=== PATIENT | male | born 1955 | race African-American/Black ===

== ENCOUNTER 2021-12-24 11:24 | Emergency (ER) | payer MEDICARE, MEDICAID, SELFPAY ==
[2021-12-24] VITALS (13 sets, daily range): BP systolic 171–195; BP diastolic 90–116; PULSE 59–74; RESP 17–18; TEMP 36.8; O2SAT 100
--- NOTE | ~2021-12-24 | XR_ITS ---
EXAMINATION: XR chest 1V portable 12/24/2021 15:36 INDICATION: Hypertension. Headache. PROCEDURE: AP portable chest COMPARISON: No prior studies for comparison. FINDINGS: The lungs are clear. The cardiomediastinal silhouette is within normal limits. There are no pleural effusions. There is no pneumothorax suspected. IMPRESSION: 1: NO ACUTE CARDIOPULMONARY DISEASE. Reviewed, dictated and finalized at location A. ENSATION/BENEFITS SPECIALIST
--- NOTE | ~2021-12-24 | CT_ITS ---
EXAMINATION: CT brain wo con DATE: 12/24/2021 15:25 INDICATION: Headache. Hypertension. TECHNIQUE: Computed tomography (CT) of the head was performed without intravenous contrast. The mA wa s adjusted according to patient size. Iterative reconstruction technique was employed. The dose-lengt h product was 605.33 mGy-cm. 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 There is no intracranial hemorrhage, acute infarction, or abnormal intracranial mass lesion. The ventricles are normal in size. There is mild m ucosal thickening in the paranasal sinuses. The mastoid air cells are normal. There is cerumen in lef t external auditory canal. IMPRESSION: 1. 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 Reviewed, dictated and finalized at location A. ITY TECHNICIAN [employer]ERGL[employer]
--- NOTE | 2021-12-24 15:12 | ECG_ITS ---
Measurements Intervals [place] Rate: 57 P: 51 KS: 146 QRS: 36 QRSD: 77 T: 33 QT: 443 QTc: 432 Interpretive Statements SINUS BRADYCARDIA VOLTAGE CRITERIA FOR LVH BASELINE ARTIFACT- I, II, III, AVR, AVL, AVF BORDERLINE ECG NO PREVIOUS ECG AVAILABLE FOR COMPARISON Electronically Signed On 12-24-2021 15:52:16 LAST CODE STRIPER by Reymundo Greman D.O.
--- NOTE | 2021-12-24 15:16 | ED.GENADULT ---
HPI - General Adult General Chief complaint: Headache Stated complaint: headache Time Seen by Provider: 12/24/21 15:07 Source: patient and family Mode of arrival: ambulatory Limitations: no limitations History of Present Illness HPI narrative: 66 years old -Y[place]i male presents with headache mainly on the right side of the head and on the top started 6 to 7 days ago. Patient ran out of metoprolol 12.5 mg once a day for the last 2 weeks. He denies any fever, chills, nausea, vomiting, chest pain, shortness of breath, back pain or urinary symptoms. Patient smokes, drinks and uses marijuana daily Related Data Allergies Allergy/AdvReac Type Severity Reaction Status Date / Time No Known Allergies Allergy Verified 12/24/21 15:10 Review of Systems Review of Systems: All systems reviewed & are unremarkable except as noted in HPI and below Exam Narrative: General appearance: Well-developed, well-nourished Skin: Normal color Head: Normocephalic, nontraumatic Eyes: Clear conjunctiva ENT: Oropharynx normal, ears normal, nose normal Neck: Supple, nontender Chest and respiratory: Airway patent, no respiratory distress, no accessory muscle use Heart: Regular rate/rhythm Abdomen: Soft, nontender, no organomegaly, quiet bowel sounds Vascular: Normal peripheral pulses, normal capillary refill. Musculoskeletal: Normal range of motion, nontender back Neurologic: Alert and oriented ?3, CENTER HUMAN RESOURCES MANAGER is normal as tested, no gross motor deficit Course Vital Signs Vital signs: Vital Signs Temperature 36.8 C 12/24/21 11:28 Pulse Rate 66 12/24/21 11:28 Respiratory Rate 18 12/24/21 11:28 Blood Pressure 173/115 H 12/24/21 11:28 Pulse Oximetry 100 12/24/21 11:28 Oxygen Delivery Room Air 12/24/21 11:28 Temperature 36.8 C 12/24/21 11:28 Pulse Rate 74 12/24/21 16:42 Respiratory Rate 17 12/24/21 15:08 Blood Pressure 181/91 H 12/24/21 16:42 Pulse Oximetry 100 12/24/21 15:08 Oxygen Delivery Room Air 12/24/21 11:28 Medical Decision Making Vital Signs Vital Signs: Vital Signs Temperature 36.8 C 12/24/21 11:28 Pulse Rate 66 12/24/21 11:28 Respiratory Rate 18 12/24/21 11:28 Blood Pressure 173/115 H 12/24/21 11:28 Pulse Oximetry 100 12/24/21 11:28 Oxygen Delivery Room Air 12/24/21 11:28 Temperature 36.8 C 12/24/21 11:28 Pulse Rate 74 12/24/21 16:42 Respiratory Rate 17 12/24/21 15:08 Blood Pressure 181/91 H 12/24/21 16:42 Pulse Oximetry 100 12/24/21 15:08 Oxygen Delivery Room Air 12/24/21 11:28 Lab Data Result diagrams: 12/24/21 15:18 12/24/21 15:18 Labs: Lab Results 12/24/21 12/24/21 Range/Units 15:18 15:18 WBC 9.2 (4.5-10.0) K/mm3 RBC 5.11 (4.6-6.20) M/mm3 Hgb 16.5 (14.0-18.0) g/dL Hct 49.8 (42.0-52.0) % MCV 97.5 (80-100) fl MCH 32.3 (26-34) pg MCHC 33.1 (32-36) g/dl RDW 12.8 (11.5-14.5) % Plt Count 240 (150-375) k/mm3 MPV 9.0 (7.4-10.4) fl Immature Gran % (Auto) 0.1 (0-0.5) % Neut % (Auto) 21.1 L (45.5-73.1) % Lymph % (Auto) 70.7 H (18.3-44.2) % [place] % (Auto) 6.1 (2.6-8.5) % Eos % (Auto) 1.3 (0-4.4) % Baso % (Auto) 0.7 (0.2-1.2) % Lymph # (Auto) 6.50 H (0.9-3.2) K/mm3 [place] # (Auto) 0.6 (0.1-0.6) K/mm3 Eos # (Auto) 0.1 (0-0.3) K/mm3 Baso # (Auto) 0.1 (0.0-0.1) K/mm3 Abs Immat Gran (auto) 0.01 (0.00-0.031) K/mm3 Absolute Neuts (auto) 2.0 (1.3-6.7) K/mm3 Absolute Nucleated RBC 0.0 (0.0-0.012) K/mm3 Nucleated RBC % 0.0 (0.0-0.2) % Sodium 138 (137-145) mmol/L Potassium 3.5 (3.4-5.0) mmol/L Chloride 103 (98-107) mmol/L Carbon
[2021-12-24 15:28] LABS: Basophils Absolute Auto 0.1 K/mm3 (0.0-0.1); Basophils Percent Auto 0.7 % (0.2-1.2); Eosinophils Absolute Auto 0.1 K/mm3 (0-0.3); Eosinophils Percent Auto 1.3 % (0-4.4); Hematocrit 49.8 % (42.0-52.0); Hemoglobin 16.5 g/dL (14.0-18.0); Immature Granulocyte Absolute 0.01 K/mm3 (0.00-0.031); Immature Granulocyte Percent A 0.1 % (0-0.5); Lymphocytes Percent Auto 70.7 % (18.3-44.2); Mean Corpuscular HGB Conc 33.1 g/dl (32-36); Mean Corpuscular Hemoglobin 32.3 pg (26-34); Mean Corpuscular Volume 97.5 fl (80-100); Monocytes Absolute Auto 0.6 K/mm3 (0.1-0.6); Monocytes Percent Auto 6.1 % (2.6-8.5); Neutrophils Percent Auto 21.1 % (45.5-73.1); Platelet Count Result 240 k/mm3 (150-375); Red Blood Count 5.11 M/mm3 (4.6-6.20); Red Cell Distribution Width 12.8 % (11.5-14.5); White Blood Count 9.2 K/mm3 (4.5-10.0)
[2021-12-24] MEDS: METOPROLOL TARTRATE INJ 5 MG/5 ML VIAL IV PUSH ×3 (15:35→15:46)
[2021-12-24 15:42] LABS: Alanine Aminotransferase 18 U/L (6-50); Albumin Level 4.1 g/dL (3.5-5.1); Alkaline Phosphatase 52 U/L (38-126); Anion Gap 7 mmol/L (8-16); Aspartate Amino Transferase 27 U/L (17-59); Bilirubin,Total 0.9 mg/dL (0.2-1.3); Blood Urea Nitrogen 9 mg/dL (9-20); Calcium 8.6 mg/dL (8.4-10.2); Carbon Dioxide 28 mmol/L (22-30); Chloride 103 mmol/L (98-107); Estimated CRCL calculation 53 ml/min; Estimated Glomerular Filt Rate > 60; Glucose 88 mg/dL (65-110); Potassium 3.5 mmol/L (3.4-5.0); Sodium 138 mmol/L (137-145)
[2021-12-24 15:54] LABS: Troponin I < 0.012 ng/mL (0.000-0.034)
[2021-12-24] MEDS: hydrALAZINE HCL 20 MG/ML VIAL IV PUSH (16:09)
[2021-12-24] MEDS: LORazepam INJ (*CRX) 2 MG/ML VIAL 1 MG IV PUSH (16:10)
[2021-12-24] MEDS: METOPROLOL TARTRATE 50 MG TAB 25 MG PO (17:00)
== END 2021-12-24 17:10 | disposition home or self-care (01) ==
PROVIDERS: Emergency Provider Emergency Medicine
DX: R51.9 Headache, unspecified (principal); I16.0 Hypertensive urgency
CPT/HCPCS: 36415; 70450; 71045; 80053; 84484; 85025; 93005; 96374; 96375; 96376; 99284; A9270; J0360; J2060

== ENCOUNTER 2023-09-13 15:23 | Outpatient (CLI) | payer MEDICARE, SELFPAY ==
[2023-09-13 15:47] LABS: Hematocrit 39.6 % (42.0-52.0); Hemoglobin 13.2 g/dL (14.0-18.0); Mean Corpuscular HGB Conc 33.3 g/dl (32-36); Mean Corpuscular Hemoglobin 31.8 pg (26-34); Mean Corpuscular Volume 95.4 fl (80-100); Mean Platelet Volume 8.7 fl (7.4-10.4); Platelet Count Result 292 k/mm3 (150-375); Red Blood Count 4.15 M/mm3 (4.6-6.20); Red Cell Distribution Width 12.7 % (11.5-14.5); White Blood Count 8.9 K/mm3 (4.5-10.0)
[2023-09-13 16:01] LABS: Band Neutrophils Percent 2 % (0-6); Lymphocytes Absolute Manual 5.69 K/mm3 (1.1-4.5); Monocytes Absolute Manual 0.44 K/mm3 (0.1-0.90); Monocytes Percent Manual 5 % (3-9); Neutrophils Absolute Manual 2.75 K/mm3 (1.3-6.7); Neutrophils Percent Manual 29 % (46-73); Platelet Estimate Adequate (Adequate); Total Cells Counted 100
[2023-09-13 16:02] LABS: Hypochromasia 1+; Schistocytes None Seen
[2023-09-13 16:36] LABS: Iron 123 ug/dL (49-181)
[2023-09-13 16:44] LABS: Alanine Aminotransferase 43 U/L (6-50); Albumin Level 4.9 g/dL (3.5-5.1); Alkaline Phosphatase 57 U/L (38-126); Anion Gap 9 mmol/L (4-12); Aspartate Amino Transferase 49 U/L (17-59); Bilirubin,Total 0.7 mg/dL (0.2-1.3); Blood Urea Nitrogen 15 mg/dL (9-20); CRP < 0.5 mg/dL (<1.0); Calcium 9.4 mg/dL (8.4-10.2); Carbon Dioxide 33 mmol/L (22-30); Chloride 97 mmol/L (98-107); Estimated Glomerular Filt Rate > 60; Glucose 91 mg/dL (65-110); Potassium 3.5 mmol/L (3.4-5.0); Sodium 139 mmol/L (137-145)
[2023-09-13 16:45] LABS: Percent Iron Saturation 44 % (20-50)
[2023-09-13 16:49] LABS: Erythrocyte Sedimentation Rate 17 mm/hr (0-20)
== END 2023-09-13 15:24 | disposition home or self-care (01) ==
LOC: ANHLAB 15:28
PROVIDERS: Nurse Practitioner Family; Visit Provider Internal Medicine Hematology & Oncology
DX: D72.820 Lymphocytosis (symptomatic) (principal); D50.9 Iron deficiency anemia, unspecified
CPT/HCPCS: 36415; 80053; 82607; 82728; 83540; 83550; 85025; 85652; 86140; 88184

== ENCOUNTER 2023-09-15 15:15 | Outpatient (CLI) | payer MEDICARE, SELFPAY ==
--- NOTE | ~2023-09-15 | CT_ITS ---
CT Scan of the Chest without Contrast: Clinical Indication: Lung cancer screening, nicotine dependence Technique: Contiguous sections were acquired throughout the chest without intravenous contrast. Dose reduction technique was used on this scan by utilizing automated exposure control and iterative recon struction technique. The dose-length product (DLP) was 66.70 mGy-cm. Findings: There is no evidence of any significant mediastinal, hilar or axillary lymphadenopathy. Coronary emily ry calcification are present. There is mild diffuse esophageal dilatation. There is no evidence of pleural or pericardial effusion. 9 mm right lower lobe pulmonary nodule present (coronal image 77). There is moderate emphysema in the upper lobes. Images through the upper abdomen reveal no abnormalities. Impression: Lung RADS 4A: Suspicious. 3 month follow-up CT advised. Moderate upper lobe emphysema. Reviewed, dictated and finalized at [facility]. Impression: Lung RADS 4A: Suspicious. 3 month follow-up CT advised. Moderate upper lobe emphysema.
== END 2023-09-15 15:16 | disposition home or self-care (01) ==
LOC: ANHIMG 16:07
PROVIDERS: PCP Emergency Medicine; Visit Provider Nurse Practitioner Family
DX: Z12.2 Encounter for screening for malignant neoplasm of respiratory organs (principal); J43.9 Emphysema, unspecified; Z87.891 Personal history of nicotine dependence
CPT/HCPCS: 71271

== ENCOUNTER 2023-11-08 08:50 | Outpatient (CLI) | payer MEDICARE, SELFPAY ==
--- NOTE | ~2023-11-08 | CT_ITS ---
Clinical Indication: Lung nodule CT Scan of the Chest with Contrast: Technique: Contiguous sections were acquired throughout the chest after intravenous administration of 75 cc of Omnipaque 350. Dose reduction technique was used on this scan by utilizing automated exposu re control and iterative reconstruction technique. The dose-length product (DLP) was 146.83 mGy-cm. COMPARISON: 09/15/2023 Findings: There is no evidence of any significant mediastinal, hilar or axillary lymphadenopathy. There is no f illing defect in the pulmonary arterial tree to suggest pulmonary embolus. There is no evidence of ao rtic dissection or aneurysm. Coronary artery calcifications are present. There is no evidence of pleural or pericardial effusion. Stable 8 mm right basilar pulmonary nodule, with associated adjacent scarring. There is moderate emph ysema. Images through the upper abdomen reveal no abnormalities. Impression: Stable 8 mm right basilar pulmonary nodule with associated adjacent scarring. Moderate emphysema. Reviewed, dictated and finalized at [facility]. Impression: Stable 8 mm right basilar pulmonary nodule with associated adjacent scarring. Moderate emphysema.
[2023-11-08 09:23] LABS: Estimated Glomerular Filt Rate 57
== END 2023-11-08 08:51 | disposition home or self-care (01) ==
PROVIDERS: PCP Emergency Medicine; Visit Provider Internal Medicine Hematology & Oncology
DX: R91.1 Solitary pulmonary nodule (principal); J43.9 Emphysema, unspecified
CPT/HCPCS: 71260; Q9967

== ENCOUNTER 2023-12-06 09:21 | Outpatient (CLI) | payer MEDICARE, SELFPAY ==
[2023-12-06 09:37] LABS: Basophils Absolute Auto 0.1 K/mm3 (0.0-0.1); Basophils Percent Auto 0.8 % (0.2-1.2); Eosinophils Absolute Auto 0.2 K/mm3 (0-0.3); Hematocrit 38.7 % (42.0-52.0); Hemoglobin 12.7 g/dL (14.0-18.0); Immature Granulocyte Absolute 0.01 K/mm3 (0.00-0.031); Immature Granulocyte Percent A 0.1 % (0-0.5); Lymphocytes Absolute Auto 5.55 K/mm3 (0.9-3.2); Lymphocytes Percent Auto 64.2 % (18.3-44.2); Mean Corpuscular HGB Conc 32.8 g/dl (32-36); Mean Corpuscular Hemoglobin 31.4 pg (26-34); Mean Corpuscular Volume 95.6 fl (80-100); Mean Platelet Volume 8.8 fl (7.4-10.4); Monocytes Absolute Auto 0.6 K/mm3 (0.1-0.6); Monocytes Percent Auto 6.5 % (2.6-8.5); Neutrophils Absolute Auto 2.3 K/mm3 (1.3-6.7); Neutrophils Percent Auto 26.4 % (45.5-73.1); Platelet Count Result 287 k/mm3 (150-375); Red Blood Count 4.05 M/mm3 (4.6-6.20); Red Cell Distribution Width 12.5 % (11.5-14.5); White Blood Count 8.7 K/mm3 (4.5-10.0)
[2023-12-06 09:42] LABS: Blood Urea Nitrogen 15 mg/dL (8-26); Carbon Dioxide 28 mmol/L (22-30); Chloride 100 mmol/L (98-109); Estimated Glomerular Filt Rate > 60; Glucose 85 mg/dL (70-105); Ionized Calcium (POC) 1.11 mmol/L (1.11-1.31); Potassium 3.5 mmol/L (3.5-4.9); Sodium 139 mmol/L (138-146)
[2023-12-06 11:40] LABS: Alanine Aminotransferase 43 U/L (6-50); Albumin Level 4.4 g/dL (3.5-5.1); Alkaline Phosphatase 59 U/L (38-126); Anion Gap 7 mmol/L (4-12); Aspartate Amino Transferase 34 U/L (17-59); Bilirubin,Total 0.6 mg/dL (0.2-1.3); Blood Urea Nitrogen 16 mg/dL (9-20); Calcium 8.9 mg/dL (8.4-10.2); Carbon Dioxide 29 mmol/L (22-30); Chloride 101 mmol/L (98-107); Estimated Glomerular Filt Rate > 60; Glucose 87 mg/dL (65-110); Potassium 3.6 mmol/L (3.4-5.0); Sodium 137 mmol/L (137-145)
== END 2023-12-06 09:22 | disposition home or self-care (01) ==
PROVIDERS: PCP Emergency Medicine; Visit Provider Internal Medicine Hematology & Oncology
DX: D72.820 Lymphocytosis (symptomatic) (principal)
CPT/HCPCS: 36415; 80047; 80053; 85025

== ENCOUNTER 2024-05-21 09:45 | Outpatient (CLI) | payer MEDICARE, SELFPAY ==
--- NOTE | ~2024-05-21 | CT_ITS ---
Clinical Indication: Lung nodule CT Scan of the Chest with Contrast: Technique: Contiguous sections were acquired throughout the chest after intravenous administration of 75 cc of Omnipaque 350. Dose reduction technique was used on this scan by utilizing automated exposu re control and iterative reconstruction technique. The dose-length product (DLP) was 140.40 mGy-cm. COMPARISON: 11/08/2023 Findings: There is no evidence of any significant mediastinal, hilar or axillary lymphadenopathy. There is no f illing defect in the pulmonary arterial tree to suggest pulmonary embolus. There is no evidence of ao rtic dissection or aneurysm. Diffuse esophageal dilatation is similar to prior exam. There is no evidence of pleural or pericardial effusion. Stable focal right basilar scarring. Mild to moderate emphysema present. Images through the upper abdomen reveal no abnormalities. Impression: Stable focal right basilar scarring. Mild to moderate emphysema. Stable diffuse esophageal dilatation. Questionable wall thickening of the GE junction region. Conside r esophagram or endoscopy as indicated. Reviewed, dictated and finalized at location . Impression: Stable focal right basilar scarring. Mild to moderate emphysema. Stable diffuse esophageal dilatation. Questionable wall thickening of the GE ju nction region. Consider esophagram or endoscopy as indicated.
[2024-05-21 10:11] LABS: Estimated Glomerular Filt Rate 51
--- OUTSIDE RECORDS SUMMARY | 2024-05-21 10:41 | XMS_ITS | Clinical Summary ---
Author Organization [facility] [employer] Address [address] [place] [address] Care Team Providers Care C 40A Crew Chief Name Role Phone Blas Gorman MD Primary Care Provider [phone] Source Comments [facility] [facility],non-owned Affiliates and Associated Physician Practices is amultiple site organization consisting of ambulatory clinics and hospital sitesin [place], [place] and [place]. This disclosure is being madepursuant to the Care Everywhere program and may not contain all information available regarding this patient. Last updated [employer] [facility] Allergies No known active allergies Medications * Be aware that medications may not be up to date on this document. Alwaysverify current medications with the patient. atorvastatin (Lipitor) 20 MG tablet Take 1 (one) tablet by mouth once daily 01/01/2022 Active losartan-hydroCH LOROthiazide (Hyzaar) 100-12.5 MG tablet Take 1 (one) tablet by mouth once daily 12/25/2021 Active metoprolol tartrate IR (Lopressor) 50 MG tablet Take 1 (one) tablet by mouth 12/24/2021 Active amoxicillin (Amoxil) 875 MG tablet TAKE 1 TABLET BY MOUTH TWICE DAILY UNTIL GONE 11/08/2022 Active Social History Tobacco Use Types Packs/Day Years Used Date Smoking Tobacco: Every Day Cigarettes 0.5 15 Smokeless Tobacco: Never Tobacco Cessation:Ready to Q uit: Not Asked; Counseling Given: Not Answered Alcohol Use Standard Drinks/Week Comments Yes 0 (1 standard drink = 0.6 oz pur e alcohol) Sex and Gender Information Value Date Recorded Sex Assigned at Not on file Legal Sex 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 Gender Identity Not on file Sexual Orientation Not on file Last Filed Vital Signs Vital Sign Reading Time Taken Comments Blood Pressure 133/86 01/22/2022 9:12 AM SERGEANT AT ARMS Pulse 83 01/22/2022 9:12 AM SERGEANT AT ARMS Temperature 36.8 C (98.3 F) 01/22/2022 9:12 AM SERGEANT AT ARMS Respiratory Rate - - Oxygen Saturation 98% 01/22/2022 9:12 AM SERGEANT AT ARMS Inhaled Oxygen Concentration - - Weight 79.2 kg (174 lb 8 oz) 01/22/2022 9:12 AM SERGEANT AT ARMS Height 182.9 cm (6') 01/22/2022 9:12 AM SERGEANT AT ARMS Body Mass Index 23.67 01/22/2022 9:12 AM SERGEANT AT ARMS Plan of Treatment Health Maintenance Due Date Last Done Comments COLOGUARD (AGES 45-75) - COL ON CA SCREENING 1956 COLON MONITORING 1956 COLONOSCOPY - COLON CA SCREENING 1956 CT COLONOGRAPHY - COLON CA SCREENING 1956 Colorectal Cancer Screening 1956 FIT - COLON CA SCREENING 1956 FLEX SIG - COLON CA SCREENING 1956 HEPATITIS C SCREENING 10/24/1974 DTAP/TDAP/TD VACCINES (1 - Tdap) 10/29/1975 PNEUMOCOCCAL VACCINE 50+ (1 of 2 - PCV) 10/29/1975 ZOSTER VACCINE (1 of 2) 2006 AAA SCREENING 2021 COVID-19 VACCINE (1 - 2023-2 5 season) 2023 DEPRESSION SCREENING 02/08/2024 MEDICARE AWV CALENDAR YEAR 2024 INFLUENZA VACCINE (Season Ended) 2024 Respiratory Syncytial Virus (RSV) Vaccine Pt: or over 60 yrs (1 - 1-dose 75+ series) 10/29/2031 HEPATITIS B VACCINE Aged Out No longe r eligible based on patient's age to complete this topic HIB VACCINE Aged Out No longer eligi ble based on patient's age to complete this topic HPV VACCINE Aged Out No longer eligi ble based on patient's age to complete this topic MENINGOCOCCAL (Group B) VACC INE SHARED DECISION-MAKING Aged Out No longer eligibl e based on patient's age to complete this topic MENINGOCOCCAL GROUPS A/C/Y/W VACCINE Aged Out No longer eligible b ased on patient's age to complete this topic Insurance MEDICARE MEDICAID - OUT OF STATE HUMANA MEDICARE ADV HMO & PPO HUMANA SELF PAY NO INSURANCE Member Subscriber Plan / Payer (Ef fective for All Dates) Name:Jair Quintana Member ID:Not on file Relation to Subscriber:Not on file Name:JAIR QUINTANA Subscriber ID:Not on file (Home) Address: [address] [place], [place] [address] Payer ID:Not on file Group ID:Not on file Type:Self Pay Address: [place], [place] HUMANA SELF PAY NO INSURANCE Member Subscriber Plan / Payer (Ef fective for All Dates) Name:Mariano Jair Member ID:Not on file Relation to Subscriber:Not on file Name:QUINTANAJAIR Subscriber ID:Not on file Address: [address] [place] [address] Payer ID:Not on file Group ID:Not on file Type:Self Pay Address: [place], [place] Care Teams C 40A Crew Chief Relationship Specialty Start Date End Date Blas Gorman MD [address] [place] [address] PCP - General 01/13/22
--- OUTSIDE RECORDS SUMMARY | 2024-05-21 10:41 | XMS_ITS | Clinical Summary ---
Author Organization [facility]da peralta [facility] Address [address] [place] [address] Care Team Providers Care Land Leases And Rentals Manager Name Role Phone Blas Gorman MD Primary Care Provider [phone] Allergies No known active allergies Medications atenoloL (TENORMIN) 25 mg tablet Take 1 Tablet by mouth daily. 08/31/2021 Active atorvastatin (LIPITOR) 20 mg tablet Take 20 mg by mouth daily. 01/01/2022 Active metoprolol tartrate (LOPRESSOR) 50 mg tablet Take 50 mg by mouth. 12/24/2021 Active cholecalciferol, vitamin D3, 5,000 unit Take 400 Units by mouth daily. Active Active Problems No known active problems Family History Medical History Relation Name Comments Stomach Cancer Brother 1 Heart Disease Brother 2 No Known Problems Daughter 1 No Known Problems Daughter 2 No Known Problems Daughter 3 No Known Problems Daughter 4 Cerebral aneurysm Mother Breast Cancer Sister No Known Problems Son 1 No Known Problems Son 2 No Known Problems Son 3 No Known Problems Son 4 Relation Name Status Comments Brother 1 Brother 2 Alive Daughter 1 Alive Daughter 2 Alive Daughter 3 Alive Daughter 4 Alive Father Mother Sister Alive Son 1 Alive Son 2 Alive Son 3 Alive Son 4 Alive Social History Tobacco Use Types Packs/Day Years Used Date Smoking Tobacco: Every Day Cigarettes 0.3 53.3 Started: 1971 Smokeless Tobacco: Never Tobacco Cessation:Ready to Q uit: Not Asked; Counseling Given: Not Answered Alcohol Use Standard Drinks/Week Comments Yes 42 (1 standard drink = 0.6 oz pu re alcohol) Tequila 1/2 pint per day Sex and Gender Information Value Date Recorded Sex Assigned at Not on file Legal Sex Male 11:17 AM CDT Gender Identity Not on file Sexual Orientation Not on file Last Filed Vital Signs Vital Sign Reading Time Taken Comments Blood Pressure 115/67 12/06/2023 9:44 AM CDT Pulse 88 12/06/2023 9:44 AM CDT Temperature 36.6 C (97.8 F) 12/06/2023 9:44 AM CDT Respiratory Rate 16 12/06/2023 9:44 AM CDT Oxygen Saturation 93% 12/06/2023 9:44 AM CDT Inhaled Oxygen Concentration - - Weight 59.9 kg (132 lb) 12/06/2023 9:44 AM CDT Height - - Body Mass Index - - Plan of Treatment Upcoming Encounters Date Type Department Care Team (Late st Contact Info) Description 06/12/2024 3:30 PM CDT Office Visit [facility] Oncology and Hematology [facility] [address] [facility] [address] [place] [address] Konstantin Kraus MD [address] [place] [address] Health Maintenance Due Date Last Done Comments DTAP/TDAP/TD VACCINES (1 - Tdap) 10/29/1975 PNEUMOCOCCAL VACCINE 50+ YEARS (1 of 2 - PCV) 10/28/18 76 COLORECTAL SCREENING 2001 Colorectal Cancer Screening 2001 FIT-DNA Q 3 years 2001 FIT/FOBT Q 1 year 2001 Flex Sig/CT Colonography Q 5 years 2001 ZOSTER VACCINE (1 of 2) 2006 Abdominal Aortic Aneurysm (AAA) Screening 2021 INFLUENZA VACCINE (#1) 2023 Medicare Advantage ([place]) Prev entative Visit/Annual Wellness Visit 02/08/2024 12/26/2019 RSV VACCINE (60+ or ) (1 - 1-dose 75+ series) 10/29/2031 Insurance HUMANA CHOICE PPO [facility] Care Teams Land Leases And Rentals Manager Relationship Specialty Start Date End Date Blas Gorman MD [address] [place] [phone] PCP - General Family Practice 12/06/23
--- OUTSIDE RECORDS SUMMARY | 2024-05-21 10:41 | XMS_ITS | Clinical Summary ---
Author Organization [facility] Address [address] [place] [address] Care Team Providers Care Firer Electric Locomotive Name Role Phone Unavailable Primary Care Provider Unavailabl e Social History Tobacco Use Types Packs/Day Years Used Date Smoking Tobacco: Never Assessed Sex and Gender Information Value Date Recorded Sex Assigned at Not on file Legal Sex Male 1:45 PM TRICK RODEO RIDER Gender Identity Not on file Sexual Orientation Not on file Plan of Treatment Health Maintenance Due Date Last Done Comments Hepatitis C Virus (HCV) Screening 1955 TdaP Immunization 1955 Colonoscopy 2001 Colorectal Cancer Screening 2001 Cologuard 2006 Immunochemical Fecal Occult Blood 2006 Pneumococcal Immunization (5 0+ years) (1 of 1 - PCV) 2006 Zoster Immunization (1 of 2) 2006 PSA Discussion 10/29/2011 Influenza Immunization (#1) 2023 SARS-COV-2 Immunization ( - season) 2023 Respiratory Syncytial Virus (RSV) Immunization (Adult) (1 - 1-dose 75+ series) 10/29/2031 Hepatitis B Immunization Aged Out No longer eligible based on patient's age to complete this topic Meningococcal Immunization (ACWY) Aged Out No longer eligible based on patient's age to complete this topic Rotavirus Immunization Aged Out No lo nger eligible based on patient's age to complete this topic
--- OUTSIDE RECORDS SUMMARY | 2024-05-21 10:41 | XMS_ITS | Clinical Summary ---
Author Organization [facility] Address [address] [place] [address] Care Team Providers Care Program Management Specialist Name Role Phone Tez Barnes MD Primary Care Provider [phone] Allergies No known active allergies Medications atenolol (TENORMIN) 25 MG tabletIndication s:Essential hypertension Take 1 tablet by mouth once daily 60 tablet 2 Active hydroCHLOROthiaz jaime (MICROZIDE) 12.5 MG tabletIndication s:Essential hypertension TAKE 1 TABLET BY MOUTH IN THE MORNING . APPOINTMENT REQUIRED FOR FUTURE REFILLS 20 tablet 2 Active Active Problems No known active problems Family History Medical History Relation Comments Alcohol Abuse Brother Cancer Brother Alcohol Abuse Father Relation Status Comments Brother Father Social History Tobacco Use Types Packs/Day Years Used Date Smoking Tobacco: Every Day Cigarettes 0.5 57 Smokeless Tobacco: Never Tobacco Cessation:Ready to Q uit: No; Counseling Given: Yes Alcohol Use Standard Drinks/Week Comments Yes 0 (1 standard drink = 0.6 oz pur e alcohol) Sex and Gender Information Value Date Recorded Sex Assigned at Not on file Legal Sex Male 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 Gender Identity Not on file Sexual Orientation Not on file Last Filed Vital Signs Vital Sign Reading Time Taken Comments Blood Pressure 174/120 12/26/2019 9:25 AM EXPEDITIONARY FIGHTING VEHICLE CREWMAN Pulse 82 12/26/2019 9:08 AM EXPEDITIONARY FIGHTING VEHICLE CREWMAN Temperature 36.2 C (97.2 F) 12/26/2019 9:08 AM EXPEDITIONARY FIGHTING VEHICLE CREWMAN Respiratory Rate 17 12/26/2019 9:08 AM EXPEDITIONARY FIGHTING VEHICLE CREWMAN Oxygen Saturation 99% 12/26/2019 9:08 AM EXPEDITIONARY FIGHTING VEHICLE CREWMAN Inhaled Oxygen Concentration - - Weight 62.6 kg (138 lb) 12/26/2019 9:08 AM EXPEDITIONARY FIGHTING VEHICLE CREWMAN Height 182.9 cm (6') 12/26/2019 9:08 AM EXPEDITIONARY FIGHTING VEHICLE CREWMAN Body Mass Index 18.72 12/26/2019 9:08 AM EXPEDITIONARY FIGHTING VEHICLE CREWMAN Plan of Treatment Health Maintenance Due Date Last Done Comments Colorectal Cancer Screening Colonoscopy (10 Years) 1956 Hepatitis C 1974 DTaP, Tdap and Td Vaccines ( 1 - Tdap) 10/29/1975 Zoster Vaccines (1 of 2) 2006 Pneumococcal Vaccine: 50+ Ye ars (1 of 1 - PCV) 2021 COVID-19 Vaccine (1 - 2023-2 5 season) 2023 RSV Immunization or 60+ Years (1 - 1-dose 75+ series) 10/29/2031 Meningococcal B Vaccine Aged Out No l onger eligible based on patient's age to complete this topic Meningococcal Vaccine Aged Out No candida lauro eligible based on patient's age to complete this topic RSV Immunizations Under 20 Months Aged Out No longer eligible based on patient's age to complete this topic Care Teams Program Management Specialist Relationship Specialty Start Date End Date Tez Barnes MD [address], [place] [address] PCP - General FAMILY PRACTICE 12/24/19
--- OUTSIDE RECORDS SUMMARY | 2024-05-21 10:41 | XMS_ITS | CONTINUITY OF CARE DOCUMENT ---
Author Name jocelyn christoferisidra Address Unknown Organization [facility] Address [address] [place] [address] Phone [phone] Care Team Providers Care Hearing Screen Coordinator Name Role Phone Delfino Ackerman MD Unavailable ADIA BHARDWAJ MD Unavailable [phone] ADIA BHARDWAJ MD Unavailable [phone] PROBLEMS Condition Status Date Provider Notes Cardiology examination active Leon Wilson MD HTN essential active Leon Wilson MD Hyperlipidemia active Leon Wilson MD CVA active Leon Wilson MD Abnormal EKG active Leon Wilson MD Preoperative cardiovascular examination active Leon Wilson MD ENCOUNTERS Date Type Provider Location Encounter Diag nosis 2 - 2 In-person encounter Office Visit Leon Wilson MD [facility] Cardiology examinationHTN essentialHyperlipidemiaCVAAbnormal EKGPreoperative cardiovascular examination VITAL SIGNS Date Observation Value Provider Body Mass Index (Ratio) 18.58 kg/m2 Delgado Wilson MD blood pressure, diastolic 77 mm[Hg] Ann nkLogic blood pressure, systolic 121 mm[Hg] Jazmin kLogic blood pressure, cuff size regular Ja rret blood pressure, diastolic 77 mm[Hg] Ja rret blood pressure, systolic 121 mm[Hg] Jar ret 09/22 pulse rate 66 /min Giovany y height E&M 72 [in_i] Giovany y respiratory rate E&M 12 /min Giovany oxygen saturation, oximetry 97 % Giovany weight E&M 137 [lb_av] Giovany y ALLERGIES No Known Drug Allergies HISTORY OF MEDICATION USE Medication Status Instructions Dates Provider Indications Com ments metoprolol tartrate 50 mg tablet active TAKE 1/2 (ONE-HALF) TABLET BY MOUTH ONCE DAILY losartan-hydrochlo rothiazide 50-12.5 mg tablet active atorvastatin 20 mg tablet active SOCIAL HISTORY Date Observation Value Provider Underweight yes Leon Wilson MD social history reviewed E&M revi ewed - no changes required Leon Wilson MD social history E&M S moking History: P atumu currently smokes every day. P atient has been counseled to quit. Leon Wilson MD smoking/tobacco cess ation, patient education and counseling yes Leon Wilson MD cigarette use yes Giovany Mendietazane maddox smoking status Current every day sm[facility] INSURANCE PROVIDERS Payer name Policy type / Coverage type [place] [employer] party ID HUMANA PPO O [id number] ADVANCE DIRECTIVES Name Date DISCUSSED - NO DECISION MADE TREATMENT PLAN Date Name Performer [id number],C,H e is cleared and low risk for his tooth extraction. Leon Wilson MD [id number],C,T he patient is on a statin H is updated medication list for this problem includes: Atorvastatin 20 Mg Tablet (Atorvastatin) Leon Wilson MD [id number],C,I would recommend conitnuing the HCTZ - losartan and stopping the metoprolol since it is a low dose and is not the first choice for BP control. B P today: His updated medication list for this problem includes: Metoprolol Tartrate 50 Mg Tablet (Metoprolol tartrate) ..... Take 1/2 (one-half) tablet by mouth once daily Losartan-hydrochlorothiazide 50-12.5 Mg Tablet (Losartan-hydrochlorothiazide) Leon Wilson MD [id number],C,Will check ec ho Leon Wilson MD Cardiology:He is dang ared and low risk for his tooth extraction. Leon Wilson MD Cardiology:The patie nt is on a statin H is updated medication list for this problem includes: Atorvastatin 20 Mg Tablet (Atorvastatin) Leon Wilson MD Cardiology:I would r ecommend conitnuing the HCTZ - losartan and stopping the metoprolol since it is a low dose and is not the first choice for BP control. B P today: His updated medication list for this problem includes: Metoprolol Tartrate 50 Mg Tablet (Metoprolol tartrate) ..... Take 1/2 (one-half) tablet by mouth once daily Losartan-hydrochlorothiazide 50-12.5 Mg Tablet (Losartan-hydrochlorothiazide) Leon Wilson MD Cardiology:Will check echo Leon Wilson MD Date Name Complete Echo HISTORY OF PROCEDURES Procedure Date Procedure Name Provider Procedure Notes S tatus EKG Leon Wilson MD completed
== END 2024-05-21 09:46 | disposition home or self-care (01) ==
PROVIDERS: PCP Emergency Medicine; Visit Provider Internal Medicine Hematology & Oncology
DX: R91.1 Solitary pulmonary nodule (principal); J98.4 Other disorders of lung; J43.9 Emphysema, unspecified; K22.89 Other specified disease of esophagus
CPT/HCPCS: 71260; Q9967

== ENCOUNTER 2024-06-12 14:46 | Outpatient (CLI) | payer MEDICARE, SELFPAY ==
--- OUTSIDE RECORDS SUMMARY | 2024-06-12 14:50 | XMS_ITS | Clinical Summary ---
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 Gender Identity Not on file Sexual Orientation Not on file Last Filed Vital Signs Vital Sign Reading Time Taken Comments Blood Pressure 174/120 12/26/2019 9:25 AM RECORDS MANAGEMENT TECHNICIAN Pulse 82 12/26/2019 9:08 AM RECORDS MANAGEMENT TECHNICIAN Temperature 36.2 C (97.2 F) 12/26/2019 9:08 AM RECORDS MANAGEMENT TECHNICIAN Respiratory Rate 17 12/26/2019 9:08 AM RECORDS MANAGEMENT TECHNICIAN Oxygen Saturation 99% 12/26/2019 9:08 AM RECORDS MANAGEMENT TECHNICIAN Inhaled Oxygen Concentration - - Weight 62.6 kg (138 lb) 12/26/2019 9:08 AM RECORDS MANAGEMENT TECHNICIAN Height 182.9 cm (6') 12/26/2019 9:08 AM RECORDS MANAGEMENT TECHNICIAN Body Mass Index 18.72 12/26/2019 9:08 AM RECORDS MANAGEMENT TECHNICIAN Plan of Treatment Health Maintenance Due Date Last Done Comments Colorectal Cancer Screening Colonoscopy (10 Years) 1956 Hepatitis C 1974 DTaP, Tdap and Td Vaccines ( 1 - Tdap) 10/29/1975 Pneumococcal Vaccine: 50+ Ye ars (1 of 1 - PCV) 2006 Zoster Vaccines (1 of 2) 2006 COVID-19 Vaccine (1 - 2023-2 5 season) [...] age to complete this topic Care Teams Cardiology Consultant Relationship Specialty Start Date End Date Tez Barnes MD [address], [place] [address] PCP - General FAMILY PRACTICE 12/24/19
--- OUTSIDE RECORDS SUMMARY | 2024-06-12 14:50 | XMS_ITS | Clinical Summary ---
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
--- OUTSIDE RECORDS SUMMARY | 2024-06-12 14:50 | XMS_ITS | CONTINUITY OF CARE DOCUMENT ---
Author Name jocelyn christoferisidra Address Unknown Organization [facility] Address [address] [facility] [address] [place] [address] Phone [phone] Care Team Providers Care Trim Mounter Name Role Phone Delfino Ackerman MD Unavailable ADIA BHARDWAJ MD Unavailable [phone] ADIA BHARDWAJ MD Unavailable [phone] PROBLEMS Condition Status Date Provider Notes Cardiology examination active Leon Wilson MD HTN essential active Leon Wilson MD Hyperlipidemia active Leon Wilson MD CVA active Leon Wilson MD Abnormal EKG active Leon Wilson MD Preoperative cardiovascular examination active Leon Wilson MD ENCOUNTERS Date Type Provider Location Encounter Diag nosis 2 - 2 In-person encounter Office Visit Leon Wilson MD [facility] Cardiology examinationHTN essentialHyperlipidemiaCVAAbnormal EKGPreoperative cardiovascular examination [...] smoking status Current every day smoker [facility]celeste INSURANCE PROVIDERS Payer name Policy type / Coverage type [place] [employer] party ID HUMANA PPO O [id number] ADVANCE DIRECTIVES Name Date DISCUSSED - NO DECISION MADE TREATMENT PLAN Date Name Performer [id number],C,H e is cleared and low risk for his tooth extraction. Leon Wilson MD [id number],C,T he patient is on a statin H is updated medication list for this problem includes: Atorvastatin 20 Mg Tablet (Atorvastatin) Leon Wilson MD [id number],C,I would recommend conitnuing the HCTZ - losartan and stopping the metoprolol since it is a low dose and is not the first choice for BP control. B P today: His updated medication list for this problem includes: Metoprolol Tartrate 50 Mg Tablet (Metoprolol tartrate) ..... Take 1/2 (one-half) tablet by mouth once daily Losartan-hydrochlorothiazide 50-12.5 Mg Tablet (Losartan-hydrochlorothiazide) Leon Wilson MD [id number],C,Will check ec ho Leon Wilson MD Cardiology:He [...]
--- OUTSIDE RECORDS SUMMARY | 2024-06-12 14:50 | XMS_ITS | Clinical Summary ---
Author Organization [facility] Address [address] [place] [address] Care Team Providers Care Steel Sash Erector Name Role Phone Blas Gorman MD Primary Care Provider [phone] Source Comments [facility],non-owned Affiliates and Associated Physician Practices is amultiple site organization consisting of ambulatory clinics and hospital sitesin [place], [place], [place] and [place]. This disclosure is being madepursuant to the Care Everywhere program and may not contain all information available regarding this patient. Last updated 17.[employer] [facility] Allergies No known active allergies Medications * [...] on file Legal Sex Male 12:00 PM COMPUTER TECHNOLOGY TRAINER Gender Identity Not on file Sexual Orientation Not on file Last Filed Vital Signs Vital Sign Reading Time Taken Comments Blood Pressure 133/86 01/22/2022 9:12 AM COMPUTER TECHNOLOGY TRAINER Pulse 83 01/22/2022 9:12 AM COMPUTER TECHNOLOGY TRAINER Temperature 36.8 C (98.3 F) 01/22/2022 9:12 AM COMPUTER TECHNOLOGY TRAINER Respiratory Rate - - Oxygen Saturation 98% 01/22/2022 9:12 AM COMPUTER TECHNOLOGY TRAINER Inhaled Oxygen Concentration - - Weight 79.2 kg (174 lb 8 oz) 01/22/2022 9:12 AM COMPUTER TECHNOLOGY TRAINER Height 182.9 cm (6') 01/22/2022 9:12 AM COMPUTER TECHNOLOGY TRAINER Body Mass Index 23.67 01/22/2022 9:12 AM COMPUTER TECHNOLOGY TRAINER Plan of Treatment Health Maintenance Due Date [...] QUINTANA Subscriber ID:Not on file (Home) Address: [address] [place], [place] [address] Payer ID:Not on file Group ID:Not on file Type:Self Pay Address: [place], [place] [employer] SELF PAY NO INSURANCE Member Subscriber Plan / Payer (Ef fective for All Dates) Name:Mariano Jair Member ID:Not on file Relation to Subscriber:Not on file Name:QUINTANAJAIR Subscriber ID:Not on file Address: [address] [place] [address] Payer ID:Not on file Group ID:Not on file Type:Self Pay Address: [place], [place] Care Teams Steel Sash Erector Relationship Specialty Start Date End Date Blas Gorman MD [address] [place] [address] PCP - General 01/13/22
--- OUTSIDE RECORDS SUMMARY | 2024-06-12 14:50 | XMS_ITS | Clinical Summary ---
Author Organization [facility] Jayda peralta Jacquelin Address [address] [place] [address] Care Team Providers Care Poultry Pathologist Name Role Phone Blas Gorman MD Primary Care Provider [phone] Allergies No known active allergies Medications atenoloL (TENORMIN) 25 mg tablet Take 1 Tablet by mouth daily. 08/31/2021 Active atorvastatin (LIPITOR) 20 mg tablet Take 20 mg by mouth daily. 01/01/2022 Active metoprolol tartrate (LOPRESSOR) 50 mg tablet Take 50 mg by mouth. 12/24/2021 Active cholecalciferol, vitamin D3, 5,000 unit Take 400 Units by mouth daily. Active Active Problems No known active problems Encounters Date Type Department Care Team Description 05/21/2024 Orders Only [facility] Oncology and Hematology - Miguel [address] [facility] [address] [address] Konstantin Kraus MD from Last 3 Months Family History Medical History Relation Name Comments [...] Description 06/12/2024 3:30 PM CDT Office Visit [facility] On[facility] [address] [place] [address] [facility] [address] [place] [address] Konstantin Kraus MD [address] [facility] [address] [place] [address] Health Maintenance Due Date Last [...] (AAA) Screening 2021 INFLUENZA VACCINE (#1) 2023 RSV VACCINE (60+ or ) (1 - 1-dose 75+ series) 10/29/2031 Procedures Procedure Name Priority Date/Time Associated Diagnosis Comments CT CHEST W CONTRAST Routine 05/21/2024 1:44 PM CDT from Last 3 Months Results * CT CHEST W CONTRAST (05/21/2024 1:44 PM CDT) Anatomical Region Laterality Modality Chest Computed Tomogra phy us Konstantin Kraus MD CT ORDERABLES Final Result from Last 3 Months Insurance [employer]NA CHOICE PPO MCR Care Teams Poultry Pathologist Relationship Specialty Start Date End Date Blas Gorman MD [address] [place] [phone] PCP - General Family Practice 12/06/23
[2024-06-12 15:01] LABS: Basophils Absolute Auto 0.1 K/mm3 (0.0-0.1); Basophils Percent Auto 0.7 % (0.2-1.2); Eosinophils Absolute Auto 0.1 K/mm3 (0-0.3); Eosinophils Percent Auto 1.5 % (0-4.4); Hematocrit 38.3 % (42.0-52.0); Immature Granulocyte Absolute 0.01 K/mm3 (0.00-0.031); Immature Granulocyte Percent A 0.1 % (0-0.5); Lymphocytes Percent Auto 65.6 % (18.3-44.2); Mean Corpuscular HGB Conc 33.9 g/dl (32-36); Mean Corpuscular Hemoglobin 31.2 pg (26-34); Mean Corpuscular Volume 91.8 fl (80-100); Mean Platelet Volume 9.1 fl (7.4-10.4); Monocytes Absolute Auto 0.6 K/mm3 (0.1-0.6); Monocytes Percent Auto 7.2 % (2.6-8.5); Neutrophils Absolute Auto 2.2 K/mm3 (1.3-6.7); Neutrophils Percent Auto 24.9 % (45.5-73.1); Platelet Count Result 247 k/mm3 (150-375); Red Blood Count 4.17 M/mm3 (4.6-6.20); Red Cell Distribution Width 12.4 % (11.5-14.5); White Blood Count 8.7 K/mm3 (4.5-10.0)
[2024-06-12 15:04] LABS: Blood Urea Nitrogen 17 mg/dL (8-26); Carbon Dioxide 28 mmol/L (22-30); Chloride 96 mmol/L (98-109); Estimated Glomerular Filt Rate 51; Glucose 100 mg/dL (70-105); Ionized Calcium (POC) 1.09 mmol/L (1.11-1.31); Sodium 139 mmol/L (138-146)
[2024-06-12 15:13] LABS: Potassium 2.6 mmol/L (3.5-4.9)
== END 2024-06-12 14:47 | disposition home or self-care (01) ==
LOC: ANHLAB 14:47
PROVIDERS: PCP Emergency Medicine; Visit Provider Internal Medicine Hematology & Oncology
DX: R91.1 Solitary pulmonary nodule (principal)
CPT/HCPCS: 36415; 80047; 85025

== ENCOUNTER 2024-08-19 17:27 | Emergency (ER) | payer MEDICARE, SELFPAY ==
[2024-08-19 17:28] VITALS: BP 124/72; PULSE 80; RESP 16; TEMP 36.7; O2SAT 100
--- OUTSIDE RECORDS SUMMARY | 2024-08-19 17:29 | XMS_ITS | Clinical Summary ---
Author Organization 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
--- OUTSIDE RECORDS SUMMARY | 2024-08-19 17:29 | XMS_ITS | Clinical Summary ---
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 Gender Identity Not on file Sexual Orientation Not on file Last Filed Vital Signs Vital Sign Reading Time Taken Comments Blood Pressure 174/120 12/26/2019 9:25 AM INSPECTOR OUTSIDE STEAM DISTRIBUTION Pulse 82 12/26/2019 9:08 AM INSPECTOR OUTSIDE STEAM DISTRIBUTION Temperature 36.2 C (97.2 F) 12/26/2019 9:08 AM INSPECTOR OUTSIDE STEAM DISTRIBUTION Respiratory Rate 17 12/26/2019 9:08 AM INSPECTOR OUTSIDE STEAM DISTRIBUTION Oxygen Saturation 99% 12/26/2019 9:08 AM INSPECTOR OUTSIDE STEAM DISTRIBUTION Inhaled Oxygen Concentration - - Weight 62.6 kg (138 lb) 12/26/2019 9:08 AM INSPECTOR OUTSIDE STEAM DISTRIBUTION Height 182.9 cm (6') 12/26/2019 9:08 AM INSPECTOR OUTSIDE STEAM DISTRIBUTION Body Mass Index 18.72 12/26/2019 9:08 AM INSPECTOR OUTSIDE STEAM DISTRIBUTION Plan of Treatment Health Maintenance Due Date [...] age to complete this topic Care Teams Anthropologist Relationship Specialty Start Date End Date Tez Barnes MD [address], [place] [address] PCP - General FAMILY PRACTICE 12/24/19
--- OUTSIDE RECORDS SUMMARY | 2024-08-19 17:29 | XMS_ITS | Clinical Summary ---
Author Organization [facility] Jayda peralta mAishtanvi Address [address] [place] [address] Care Team Providers Care General Farmer Name Role Phone Blas Gorman MD Primary Care Provider [phone] Allergies No known active allergies Medications atenoloL (TENORMIN) 25 mg tablet Take 1 Tablet by mouth daily. 08/31/2021 Active atorvastatin (LIPITOR) 20 mg tablet Take 20 mg by mouth daily. 01/01/2022 Active metoprolol tartrate (LOPRESSOR) 50 mg tablet Take 50 mg by mouth. 12/24/2021 Active cholecalciferol, vitamin D3, 5,000 unit Take 400 Units by mouth daily. Active potassium CHLORIDE (K-DUR,KLOR-CON M20) 20 mEq Extended Release tablet Take 1 Tablet (20 mEq) by mouth daily. 30 Tablet 3 06/12/2024 Active Active Problems No known active problems Encounters Date Type Department Care Team Description 06/15/2024 Orders Only [facility] Oncology and Hematology - Miguel [address] [facility] [address] Shruthi Diaz MD 06/12/2024 3:30 PM CDT Office Visit [facility] Oncology and Hematology - Miguel [address] [facility] [place] [address] Konstantin Kraus MD Lymphocytosis (Primary Dx) 05/21/2024 Orders Only [facility] Oncology and Hematology - [place] [address] [facility] [place] [address] Konstantin Kraus MD from Last 3 [...] Date Smoking Tobacco: Every Day Cigarettes 0.3 53.5 Started: 1970 Smokeless Tobacco: Never Tobacco Cessation:Ready [...] Sign Reading Time Taken Comments Blood Pressure 107/69 06/12/2024 3:02 PM CDT Pulse 89 06/12/2024 3:01 PM CDT Temperature 36.6 C (97.9 F) 06/12/2024 3:01 PM CDT Respiratory Rate 16 06/12/2024 3:01 PM CDT Oxygen Saturation 93% 06/12/2024 3:01 PM CDT Inhaled Oxygen Concentration - - Weight 60.3 kg (133 lb) 06/12/2024 3:01 PM CDT Height - - Body Mass Index - - Plan of Treatment Upcoming Encounters Date Type Department Care Team (Late st Contact Info) Description 10/29/2024 3:45 PM CDT Office Visit [facility] Oncology and Hematology - Miguel [address] [facility] [address] [place] [address] Konstantin Kraus MD [address] [facility] [address] [place] [address] Health Maintenance Due Date Last Done Comments DTAP/TDAP/TD VACCINES (1 - Tdap) 10/29/1975 PNEUMOCOCCAL VACCINE 50+ YEA RS (1 of 2 - PCV) 10/29/1975 COLORECTAL SCREENING 2001 Colorectal Cancer Screening 2001 FIT-DNA Q 3 years 2001 FIT/FOBT Q 1 year 2001 Flex Sig/CT Colonography Q 5 years 2001 ZOSTER VACCINE (1 of 2) 2006 Abdominal Aortic Aneurysm (A AA) Screening 2021 COVID-19 Vaccine ( season) 2023 03/19/2021, 05/22/2020, 04/28/2020 INFLUENZA VACCINE (#1) 2024 RSV VACCINE (60+ or ) (1 - 1-dose 75+ series) 10/29/2031 Procedures Procedure Name Priority Date/Time Associated Diagnosis Comments BASIC METABOLIC PANEL Routine 06/12/2024 1:41 PM CDT CBC WITH DIFFERENTIAL Routine 06/12/2024 1:[address] CHEST W CONTRAST Routine 05/21/2024 1:44 PM CDT from Last 3 Months Results * BASIC METABOLIC PANEL (06/12/2024 1:41 PM CDT) Blood us Konstantin Kraus MD CHEMISTRY ORDERABLES Final Resu lt * CBC WITH DIFFERENTIAL (06/12/2024 1:36 PM CDT) Blood Shruthi Diaz MD HEMATOLOGY ORDERABLES Keisha l Result * CT CHEST W CONTRAST (05/21/2024 1:44 PM CDT) Anatomical Region Laterality Modality Chest Computed Tomogra phy us Konstantin Kraus MD CT ORDERABLES Final Result from Last 3 Months Insurance HUMANA CHOICE PPO [facility] Care Teams General Farmer Relationship Specialty Start Date End Date Blas Gorman MD [address] [place] [phone] PCP - General Family Practice 12/06/23
--- OUTSIDE RECORDS SUMMARY | 2024-08-19 17:29 | XMS_ITS | Clinical Summary ---
Author Organization [facility] Address [address] [place] [address] Care Team Providers Care Commercial Lines Account Assistant Name Role Phone Blas Gorman MD Primary Care Provider [phone] Source Comments [facility],non-owned Affiliates and Associated Physician Practices is amultiple site organization consisting of ambulatory clinics and hospital sitesin [place], [place], [place] and [place]. This disclosure is being madepursuant to the Care Everywhere program and may not contain all information available regarding this patient. 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 Gender Identity Not on file Sexual Orientation Not on file Last Filed Vital Signs Vital Sign Reading Time Taken Comments Blood Pressure 133/86 01/22/2022 9:12 AM BUNK HOUSE WORKER Pulse 83 01/22/2022 9:12 AM BUNK HOUSE WORKER Temperature 36.8 C (98.3 F) 01/22/2022 9:12 AM BUNK HOUSE WORKER Respiratory Rate - - Oxygen Saturation 98% 01/22/2022 9:12 AM BUNK HOUSE WORKER Inhaled Oxygen Concentration - - Weight 79.2 kg (174 lb 8 oz) 01/22/2022 9:12 AM BUNK HOUSE WORKER Height 182.9 cm (6') 01/22/2022 9:12 AM BUNK HOUSE WORKER Body Mass Index 23.67 01/22/2022 9:12 AM BUNK HOUSE WORKER Plan of Treatment Health Maintenance Due Date [...] MEDICARE AWV CALENDAR YEAR 2024 INFLUENZA VACCINE (#1) 2024 Respiratory Syncytial Virus (RSV) Vaccine Pt: [...] QUINTANA Subscriber ID:Not on file (Home) Address: [address] [place], [place] [address] Payer ID:Not on file Group ID:Not on file Type:Self Pay Address: [place], [place] [employer] SELF PAY NO INSURANCE Member Subscriber Plan / Payer (Ef fective for All Dates) Name:Mariano Jair Member ID:Not on file Relation to Subscriber:Not on file Name:QUINTANAJAIR Subscriber ID:Not on file Address: [address] [place] [address] Payer ID:Not on file Group ID:Not on file Type:Self Pay Address: [place], [place] Care Teams Commercial Lines Account Assistant Relationship Specialty Start Date End Date Blas Gorman MD [address] [place] [address] PCP - General 01/13/22
[2024-08-19 21:33] LABS: Add Urine Microscopic? YES; Appearance Urine Clear (Clear); Glucose Urine UA Negative (Negative); Leukocyte Esterase Ur 2+ LEU/UL (Negative); Nitrate Urine Negative (Negative); Non Pathogenic Casts 0-2; Specific Grav Ur 1.018 (1.001-1.035)
--- OUTSIDE RECORDS SUMMARY | 2024-08-19 21:37 | XMS_ITS | Clinical Summary ---
Author Organization [facility] Address [address] [place] [address] Care Team Providers Care River Guide Name Role Phone Tez Barnes MD Primary Care Provider [phone] Allergies No known active allergies Medications atenolol [...] on file Legal Sex Male 2:02 PM RADAR TECHNICIAN Gender Identity Not on file Sexual Orientation Not on file Last Filed Vital Signs Vital Sign Reading Time Taken Comments Blood Pressure 174/120 12/26/2019 9:25 AM RADAR TECHNICIAN Pulse 82 12/26/2019 9:08 AM RADAR TECHNICIAN Temperature 36.2 C (97.2 F) 12/26/2019 9:08 AM RADAR TECHNICIAN Respiratory Rate 17 12/26/2019 9:08 AM RADAR TECHNICIAN Oxygen Saturation 99% 12/26/2019 9:08 AM RADAR TECHNICIAN Inhaled Oxygen Concentration - - Weight 62.6 kg (138 lb) 12/26/2019 9:08 AM RADAR TECHNICIAN Height 182.9 cm (6') 12/26/2019 9:08 AM RADAR TECHNICIAN Body Mass Index 18.72 12/26/2019 9:08 AM RADAR TECHNICIAN Plan of Treatment Health Maintenance Due [...] age to complete this topic Care Teams River Guide Relationship Specialty Start Date End Date Tez Barnes MD [address], [place] [address] PCP - General FAMILY PRACTICE 12/24/19
--- OUTSIDE RECORDS SUMMARY | 2024-08-19 21:37 | XMS_ITS | Clinical Summary ---
Author Organization [facility] Address [address] [place] [address] Care Team Providers Care Supervisor Graphite Name Role Phone Blas Gorman MD Primary Care Provider Source Comments [facility],non-owned Affiliates and Associated Physician Practices is amultiple site organization consisting of ambulatory clinics and hospital sitesin [place], [place], [place] and [place]. This disclosure is being madepursuant to the Care Everywhere program and may not contain all information available regarding this patient. Last updated 17.[employer] [facility] Allergies No known active allergies Medications * [...] on file Legal Sex Male 12:00 PM NURSE LDR Gender Identity Not on file Sexual Orientation Not on file Last Filed Vital Signs Vital Sign Reading Time Taken Comments Blood Pressure 133/86 01/22/2022 9:12 AM NURSE LDR Pulse 83 01/22/2022 9:12 AM NURSE LDR Temperature 36.8 C (98.3 F) 01/22/2022 9:12 AM NURSE LDR Respiratory Rate - - Oxygen Saturation 98% 01/22/2022 9:12 AM NURSE LDR Inhaled Oxygen Concentration - - Weight 79.2 kg (174 lb 8 oz) 01/22/2022 9:12 AM NURSE LDR Height 182.9 cm (6') 01/22/2022 9:12 AM NURSE LDR Body Mass Index 23.67 01/22/2022 9:12 AM NURSE LDR Plan of Treatment Health Maintenance Due Date [...] QUINTANA Subscriber ID:Not on file (Home) Address: [address] [place], [place] [address] Payer ID:Not on file Group ID:Not on file Type:Self Pay Address: [place], [place] [employer] SELF PAY NO INSURANCE Member Subscriber Plan / Payer (Ef fective for All Dates) Name:Mariano Jair Member ID:Not on file Relation to Subscriber:Not on file Name:QUINTANAJAIR Subscriber ID:Not on file Address: [address] [place] [address] Payer ID:Not on file Group ID:Not on file Type:Self Pay Address: [place], [place] Care Teams Supervisor Graphite Relationship Specialty Start Date End Date Blas Gorman MD [address] [place] [address] PCP - General 01/13/22
--- OUTSIDE RECORDS SUMMARY | 2024-08-19 21:37 | XMS_ITS | Clinical Summary ---
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
--- OUTSIDE RECORDS SUMMARY | 2024-08-19 21:37 | XMS_ITS | Clinical Summary ---
Author Organization [facility] Jayda peralta Amishtanvi Address [address] [place] [address] Care Team Providers Care Material Reprocessing Associate Name Role Phone Blas Gorman MD Primary Care Provider [phone] Allergies No known active allergies Medications atenoloL [...] Department Care Team Description 06/15/2024 Orders Only [facility] Oncology and Hematology - Miguel [address] [facility] [place] [address] Shruthi Diaz MD 06/12/2024 3:30 PM CDT Office Visit [facility] Oncology and Hematology - Miguel [address] [facility] [place] [address] Konstantin Kraus MD Lymphocytosis (Primary Dx) 05/21/2024 Orders Only [facility] Oncology and Hematology - [place] [address] [facility] [place] [address] Konstantin Kraus MD from Last [...] Description 10/29/2024 3:45 PM CDT Office Visit [facility] Oncology and Hematology - Miguel [address] [facility] [address] [place] [address] Konstantin Kraus MD [address] [facility] [address] [place] [address] Health Maintenance Due Date Last [...] CDT) Blood Shruthi Diaz MD HEMATOLOGY ORDERABLES Kesiha l Result * CT CHEST W CONTRAST (05/21/2024 1:44 PM CDT) Anatomical Region Laterality Modality Chest Computed Tomogra phy us Konstantin Kraus MD CT ORDERABLES Final Result from Last 3 Months Insurance HUMANA CHOICE PPO [facility] Care Teams Material Reprocessing Associate Relationship Specialty Start Date End Date Blas Gorman MD [address] [place] [phone] PCP - General Family Practice 12/06/23
[2024-08-19 21:40] LABS: Hematocrit 40.0 % (42.0-52.0); Hemoglobin 13.2 g/dL (14.0-18.0); Immature Granulocyte Percent A 0.0 % (0-0.5); Lymphocytes Absolute Auto 6.70 K/mm3 (0.9-3.2); Mean Corpuscular HGB Conc 33.0 g/dl (32-36); Mean Corpuscular Hemoglobin 31.1 pg (26-34); Mean Corpuscular Volume 94.3 fl (80-100); Nucleated Red Blood Cells Absolute Auto 0.000 K/mm3 (0.0-0.012); Nucleated Red Blood Cells Perc 0.0 % (0.0-0.2); Platelet Count Result 285 k/mm3 (150-375); Red Blood Count 4.24 M/mm3 (4.6-6.20); White Blood Count 9.4 K/mm3 (4.5-10.0)
[2024-08-19 21:59] LABS: Alanine Aminotransferase 25 U/L (6-50); Albumin Level 4.4 g/dL (3.5-5.1); Alkaline Phosphatase 54 U/L (38-126); Anion Gap 8 mmol/L (4-12); Aspartate Amino Transferase 34 U/L (17-59); Bilirubin,Total 0.3 mg/dL (0.2-1.3); Blood Urea Nitrogen 11 mg/dL (9-20); Calcium 9.2 mg/dL (8.4-10.2); Carbon Dioxide 29 mmol/L (22-30); Chloride 103 mmol/L (98-107); Estimated CRCL calculation 48 ml/min; Estimated Glomerular Filt Rate > 60; Glucose 90 mg/dL (65-110); Lipase 242 U/L (23-300); Magnesium 1.7 mg/dL (1.6-2.3); Potassium 3.2 mmol/L (3.4-5.0); Sodium 140 mmol/L (137-145); Total Protein 7.7 g/dL (6.3-8.2)
--- NOTE | 2024-08-19 22:02 | ED_ITS ---
HPI - General Adult General Chief complaint: Urogenital-Male Stated complaint: hematuria Time Seen by Provider: 08/19/24 21:20 History of Present Illness HPI narrative: Patient is a 68-year-old male who presents to the emergency department this evening complaining of hematuria. Denies any blood clots. Denies any dysuria or hematuria. Denies any flank pain or abdominal pain, denies any nausea or vomiting. Patient is completely asymptomatic, states that he does notice blood in his urine today. Denies any fevers or chills. No additional symptoms or concerns at this time. Related Data Allergies Allergy/AdvReac Type Severity Reaction Status Date / Time No Known Allergies Allergy Verified 12/24/21 15:10 Review of Systems 2 Review of Systems: All systems are reviewed and are negative unless stated otherwise in the HPI. Exam 2 Narrative: General: Alert, awake, afebrile, in no acute distress. HEENT: PERRL, no rhinorrhea, no post nasal drip, oropharynx clear. Neck: Trachea midline, no JVD, no lymphadenopathy. Cardiovascular: Regular rate and rhythm, no murmurs, rubs or gallops, no peripheral edema. Respiratory: Clear to auscultation bilaterally, no tachypnea, no wheezing, no rhonchi, no rubs, no respiratory distress. Abdomen: Soft, nontender, nondistended, no rebound, no guarding, no peritoneal signs. Musculoskeletal: No joint swelling or deformity, normal muscle tone. Skin: No rashes or petechia, no signs of infection. Psychiatric: Alert and oriented, normal behavior and judgment for situation. Neurological: Alert and oriented to person, place, and time. Follows all commands. No focal deficits, speech is clear and fluent. Course Vital Signs Vital signs: Vital Signs Temperature 98.0 F 08/19/24 17:28 Pulse Rate 80 08/19/24 17:28 Respiratory Rate 16 08/19/24 17:28 Blood Pressure 124/72 08/19/24 17:28 Pulse Oximetry 100 08/19/24 17:28 Oxygen Delivery Room Air 08/19/24 17:28 Temperature 98.0 F 08/19/24 17:28 Pulse Rate 80 08/19/24 17:28 Respiratory Rate 16 08/19/24 17:28 Blood Pressure 124/72 08/19/24 17:28 Pulse Oximetry 100 08/19/24 17:28 Oxygen Delivery Room Air 08/19/24 17:28 Medical Decision Making MDM Narrative Medical decision making narrative: The patient was evaluated by myself in the emergency department. History is obtained from patient who is an independent historian and physical exam was performed. External medical records were reviewed at this time. IV was established and pertinent tests were ordered. Laboratory results obtained revealing a potassium level of 3.2 otherwise unremarkable. At this time patient was administered 4 mg of oral potassium. Urinalysis revealed urinary tract infection with hematuria. Patient was administered his 1st dose of cephalexin in the emergency department 500 mg. Differential diagnosis considerations include urinary tract infection, cystitis, nephrolithiasis although unlikely giving the fact the patient has absolutely no pain. Comorbidities impacting this visit include none. I have evaluated and discussed social determinants of health with the patient that could potentially impact subsequent diagnosis and treatment plans. On repeat assessment of the patient, reevaluation revealed that the patient is doing well and is in no acute distress. Patient symptoms have improved since he arrived to our emergency department. Repeat vital signs were all reviewed and noted to be stable. Differential diagnosis and treatment plan were discussed with the patient at bedside. Patient agrees with discussion and after shared medical decision making agrees with discharge. All questions were answered to the patient's satisfaction. Patient will follow up with Urology in 1 week. He was provided with a script for cephalexin to take 4 times a day for the next 10 days. Patient was provided with strict return precautions and instructed to return to the emergency department if any new or worsening symptoms develop. The patient was discharged in stable condition. Vital Signs Vital Signs: Vital Signs Temperature 98.0 F 08/19/24 17:28 Pulse Rate 80 08/19/24 17:28 Respiratory Rate 16 08/19/24 17:28 Blood Pressure 124/72 08/19/24 17:28 Pulse Oximetry 100 08/19/24 17:28 Oxygen Delivery Room Air 08/19/24 17:28 Temperature 98.0 F 08/19/24 17:28 Pulse Rate 80 08/19/24 17:28 Respiratory Rate 16 08/19/24 17:28 Blood Pressure 124/72 08/19/24 17:28 Pulse Oximetry 100 08/19/24 17:28 Oxygen Delivery Room Air 08/19/24 17:28 Lab Data 08/19/24 21:35 08/19/24 21:35 Labs: Lab Results 08/19/24 08/19/24 Range/Units 21:23 21:35 WBC 9.4 (4.5-10.0) K/mm3 RBC 4.24 L (4.6-6.20) M/mm3 Hgb 13.2 L (14.0-18.0) g/dL Hct 40.0 L (42.0-52.0) % MCV 94.3 (80-100) fl MCH 31.1 (26-34) pg MCHC 33.0 (32-36) g/dl RDW 13.3 (11.5-14.5) % Plt Count 285 (150-375) k/mm3 MPV 9.2 (7.4-10.4) fl Immature Gran % (Auto) 0.0 (0-0.5) % Neut % (Auto) 22.2 L (45.5-73.1) % Lymph % (Auto) 71.4 H (18.3-44.2) % [place] % (Auto) 4.3 (2.6-8.5) % Eos % (Auto) 1.6 (0-4.4) % Baso % (Auto) 0.5 (0.2-1.2) % Lymph # (Auto) 6.70 H (0.9-3.2) K/mm3 [place] # (Auto) 0.4 (0.1-0.6) K/mm3 Eos # (Auto) 0.2 (0-0.3) K/mm3 Baso # (Auto) 0.1 (0.0-0.1) K/mm3 Abs Immat Gran (auto) 0.00 (0.00-0.031) K/mm3 Absolute Neuts (auto) 2.1 (1.3-6.7) K/mm3 Absolute Nucleated RBC 0.000 (0.0-0.012) K/mm3 Nucleated RBC % 0.0 (0.0-0.2) % Sodium 140 (137-145) mmol/L Potassium 3.2 L (3.4-5.0) mmol/L Chloride 103 (98-107) mmol/L Carbon Dioxide 29 (22-30) mmol/L Anion Gap 8 (4-12) mmol/L BUN 11 D (9-20) mg/dL Creatinine 1.13 (0.7-1.3) mg/dL Estim Creat Clear Calc 48 ml/min Estimated GFR > 60 (59 - ) Glucose 90 (65-110) mg/dL Calcium 9.2 (8.4-10.2) mg/dL Magnesium 1.7 (1.6-2.3) mg/dL Total Bilirubin 0.3 (0.2-1.3) mg/dL AST 34 (17-59) U/L ALT 25 (6-50) U/L Alkaline Phosphatase 54 (38-126) U/L Total Protein 7.7 (6.3-8.2) g/dL Albumin 4.4 (3.5-5.1) g/dL Lipase 242 (23-300) U/L Urine Color Yellow (Yellow) Urine Appearance Clear (Clear) Urine pH 5.5 (5.0-9.0) Ur Specific [place] 1.018 (1.001-1.035) Urine Protein Negative (Negative) mg/dL Urine Glucose (UA) Negative (Negative) mg/dL Urine Ketones Negative (Negative) mg/dL Ur Blood (Man) 3+ H (Negative) Urine Nitrate Negative (Negative) Urine Bilirubin Negative (Negative) Urine Urobilinogen 1.0 (<2.0) mg/dL Leukocyte Esterase Rfl 2+ H (Negative) WALE/UL Urine RBC >100 H (0-2) /hpf Urine WBC 51-100 H (0-3) /hpf Ur Squamous Epith Cells None seen (Few) /hpf Urine Bacteria None seen /hpf Urine Casts 0-2 Discharge Plan Discharge Clinical Impression: Urinary tract infection, Hematuria Patient Disposition: Home Condition: Improved Instructions: Antibiotic Form, Urinary Tract Infection in Men (ED), Hematuria (ED) Additional Instructions: Please follow-up with the urologist you were provided with today within the next week. Take the prescribed antibiotic as instructed for urinary tract infection. Return to the emergency department if any new or worsening symptoms develop, specifically if you develop any abdominal pain, lower back pain, fevers. Patient Language: Tristanian Prescriptions: New cephalexin 500 mg capsule 500 mg PO Q6H 10 Days Qty: 40 0RF No Action metoprolol tartrate [Lopressor] 50 mg tablet 25 mg PO DAILY Qty: 30 0RF Follow-up/Referrals: Blas Gorman MD [Primary Care Provider] - Juvenal Acuña MD [Physician] - 1 Week Time of Disposition: 22:01
[2024-08-19 22:29] VITALS: BP 127/73; PULSE 81; RESP 17; TEMP 36.7; O2SAT 99
[2024-08-19] MEDS: CEPHALEXIN 500 MG CAPSULE PO (22:34)
[2024-08-19] MEDS: POTASSIUM CHLORIDE 20 MEQ PACKET (FOR LIQUID) 40 MEQ PO (22:34)
[2024-08-19 22:39] VITALS: BP 127/73; PULSE 81; RESP 17; TEMP 36.7; O2SAT 99
== END 2024-08-19 22:42 | disposition home or self-care (01) ==
PROVIDERS: Emergency Provider Emergency Medicine; PCP Emergency Medicine
DX: N39.0 Urinary tract infection, site not specified (principal)
CPT/HCPCS: 36415; 80053; 81001; 83690; 83735; 85025; 87086; 99283; A9270

== ENCOUNTER 2024-12-27 09:58 | Emergency (ER) | payer MEDICARE, SELFPAY ==
--- NOTE | ~2024-12-27 | XR_ITS ---
EXAMINATION: XR foot LT min 3V, 12/27/2024 11:05 HOOP BENDER TANK HISTORY: 2nd toe injury, left, fall this morning COMPARISON: No comparisons available. Findings: There is a slightly displaced fracture distal aspect of the proximal phalanx second digit No significant degenerative changes. Soft tissues unremarkable. Impression: Fracture detailed above Reviewed, dictated and finalized at location P. BENDER TANK Impression: Fracture detailed above
[2024-12-27 10:30] VITALS: BP 111/69; PULSE 88; RESP 14; TEMP 36.6; O2SAT 98
--- OUTSIDE RECORDS SUMMARY | 2024-12-27 11:42 | XMS_ITS | Clinical Summary ---
Author Organization [facility] Address [address] [place] [address] Care Team Providers Care Leather Currier Name Role Phone Blas Gorman MD Primary Care Provider [phone] Source Comments [facility],non-owned Affiliates and Associated Physician Practices is amultiple site organization consisting of ambulatory clinics and hospital sitesin [place], [place], [place] and [place]. This disclosure is being madepursuant to the Care Everywhere program and may not contain all information available regarding this patient. 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 Gender Identity Not on file Sexual Orientation Not on file Last Filed Vital Signs Vital Sign Reading Time Taken Comments Blood Pressure 133/86 01/22/2022 9:12 AM PRESSER ALL AROUND Pulse 83 01/22/2022 9:12 AM PRESSER ALL AROUND Temperature 36.8 C (98.3 F) 01/22/2022 9:12 AM PRESSER ALL AROUND Respiratory Rate - - Oxygen Saturation 98% 01/22/2022 9:12 AM PRESSER ALL AROUND Inhaled Oxygen Concentration - - Weight 79.2 kg (174 lb 8 oz) 01/22/2022 9:12 AM PRESSER ALL AROUND Height 182.9 cm (6') 01/22/2022 9:12 AM PRESSER ALL AROUND Body Mass Index 23.67 01/22/2022 9:12 AM PRESSER ALL AROUND Plan of Treatment Health Maintenance Due Date [...] (1 of 2) 2006 AAA SCREENING 2021 DEPRESSION SCREENING 02/08/2024 MEDICARE AWV CALENDAR YEAR 2024 COVID-19 VACCINE (1 - 2024-2 6 season) 2024 INFLUENZA VACCINE (#1) 2024 Respiratory Syncytial [...] [place] Subscriber ID:Not on file (Home) Address: [address] [place], [place] [address] Payer ID:Not on file Group ID:Not on file Type:Self Pay Address: [place], [place] [employer] SELF PAY NO INSURANCE Member Subscriber Plan / Payer (Ef fective for All Dates) Name:Mariano Jair Member ID:Not on file Relation to Subscriber:Not on file Name:QUINTANAJAIR Subscriber ID:Not on file Address: [address] [place] [address] Payer ID:Not on file Group ID:Not on file Type:Self Pay Address: [place], [place] Care Teams Leather Currier Relationship Specialty Start Date End Date Blas Gorman MD [address] [place] [address] PCP - General 01/13/22
--- OUTSIDE RECORDS SUMMARY | 2024-12-27 11:42 | XMS_ITS | Clinical Summary ---
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 Gender Identity Not on file Sexual Orientation Not on file Last Filed Vital Signs Vital Sign Reading Time Taken Comments Blood Pressure 174/120 12/26/2019 9:25 AM CUSTOMER EQUIPMENT ENGINEER Pulse 82 12/26/2019 9:08 AM CUSTOMER EQUIPMENT ENGINEER Temperature 36.2 C (97.2 F) 12/26/2019 9:08 AM CUSTOMER EQUIPMENT ENGINEER Respiratory Rate 17 12/26/2019 9:08 AM CUSTOMER EQUIPMENT ENGINEER Oxygen Saturation 99% 12/26/2019 9:08 AM CUSTOMER EQUIPMENT ENGINEER Inhaled Oxygen Concentration - - Weight 62.6 kg (138 lb) 12/26/2019 9:08 AM CUSTOMER EQUIPMENT ENGINEER Height 182.9 cm (6') 12/26/2019 9:08 AM CUSTOMER EQUIPMENT ENGINEER Body Mass Index 18.72 12/26/2019 9:08 AM CUSTOMER EQUIPMENT ENGINEER Plan of Treatment Health Maintenance Due Date Last Done Comments Colorectal Cancer Screening Colonoscopy (10 Years) 1956 Hepatitis C 1974 DTaP, Tdap and Td Vaccines ( 1 - Tdap) 10/29/1975 Pneumococcal Vaccine: 50+ Ye ars (1 of 1 - PCV) 2006 Zoster Vaccines (1 of 2) 2006 COVID-19 Vaccine ( - 2024-2 6 season) 2024 Influenza Adult (#1) 2024 RSV Immunization or 60+ Years (1 - 1-dose 75+ series) 10/29/2031 Hepatitis A Vaccines Aged Out No long er eligible based on patient's age to complete this topic Meningococcal B Vaccine Aged Out No l onger eligible based on patient's age to complete this topic Meningococcal Vaccine Aged Out No candida lauro eligible based on patient's age to complete this topic RSV Immunizations Under 20 Months Aged Out No longer eligible based on patient's age to complete this topic
--- NOTE | 2024-12-27 13:24 | ED.LOWEXIN ---
HPI - Extremity Injury (Lower) General Chief Complaint: Extremity Injury, Lower Stated Complaint: I broke my toe Time Seen by Provider: 12/27/24 13:09 Source: patient Mode of arrival: ambulatory Limitations: no limitations History of Present Illness HPI Narrative: Patient is a 69-year-old male who presents the ED with report of pain to his left 2nd toe. Patient reports he tripped and fell and dose in his left foot. Complains of pain to his left 2nd toe. Concerned he broke his toe. Denies any other injuries. Has been able to ambulate. Has not taken anything for pain. Related Data Allergies Allergy/AdvReac Type Severity Reaction Status Date / Time No Known Allergies Allergy Verified 12/27/24 10:33 Review of Systems Review of Systems: All systems reviewed & are unremarkable except as noted in HPI. All systems reviewed & are unremarkable except as noted in HPI and below Exam Narrative: GENERAL: Well appearing, thin, non-toxic, in no acute distress. HEAD: Normocephalic, atraumatic. RESPIRATORY: Airway patent, respirations nonlabored. CARDIOVASCULAR: Regular rate and rhythm without murmurs, rubs, or gallops. Pedal pulses intact and easily palpable MUSCULOSKELETAL: Moves all extremities. No gross deformities. Mild TTP over L 2nd toe, mild swelling/bruising. Sensation intact. SKIN: Warm, dry, normal color. NEURO: A&O X3. Speech clear. No ataxic movements. PSYCHIATRIC: Appropriate mood and affect. Normal interaction. Course Vital Signs Vital signs: Vital Signs Temperature 97.9 F 12/27/24 10:30 Pulse Rate 88 12/27/24 10:30 Respiratory Rate 14 12/27/24 10:30 Blood Pressure 111/69 12/27/24 10:30 Pulse Oximetry 98 12/27/24 10:30 Oxygen Delivery Room Air 12/27/24 10:30 Temperature 97.9 F 12/27/24 10:30 Pulse Rate 88 12/27/24 10:30 Respiratory Rate 14 12/27/24 10:30 Blood Pressure 111/69 12/27/24 10:30 Pulse Oximetry 98 12/27/24 10:30 Oxygen Delivery Room Air 12/27/24 10:30 MDM - Extremity Injury (Lower) MDM Narrative Medical decision making narrative: Patient?s injury is consistent with musculoskeletal etiology. No signs of neurologic or vascular compromise on physical examination. Compartments are soft without signs of compartment syndrome. XR L foot showing: slightly displaced fracture distal aspect of the proximal phalanx second digit. Pain is consistent with exam and injury. Patient is felt to be stable for discharge home and further outpatient management and treatment. Toes were froilan-taped. Patient given postop shoe. Will be discharged with short course of pain medication for home. Discussed rice therapy. Will refer to Podiatry for further evaluation. Given return precautions. Discharged in stable condition. Patient denies any other injuries from the fall. Medical Records Attestation: I reviewed the patient's medical records. Imaging Data Attestation: I personally reviewed and interpreted this imaging study as follows: Radiologist's impression: ITS Impressions Foot X-Ray 12/27/24 11:17 Impression: Fracture detailed above Discharge Plan Discharge Clinical Impression: Closed fracture of proximal phalanx of toe of left foot Patient Disposition: Home Condition: Stable Instructions: Antibiotic Form, Toe Fracture (ED) Additional Instructions: Keep toes froilan-taped together for support. Utilize postop shoe as needed for support with walking. Recommend Tylenol, ibuprofen, elevation of foot as needed. [place] as needed for more severe pain. Follow-up with your primary care doctor and/or podiatry for further evaluation. Call office to make appointment. Return for new or worsening concerns, recurrent fall or injury, numbness, severe pain, or any other symptoms of concern. Patient Language: Vietnamese Prescriptions: New hydrocodone-acetaminophen 5-325 mg tablet 1 tablet PO Q6H PRN (Reason: pain) Qty: 6 0RF No Action cephalexin 500 mg capsule 500 mg PO Q6H 10 Days Qty: 40 0RF metoprolol tartrate [Lopressor] 50 mg tablet 25 mg PO DAILY Qty: 30 0RF Follow-up/Referrals: Iris Jeffers DPM [Physician, Podiatry] Referral Note: PODIATRY Blas Gorman MD [Primary Care Provider, [facility]] Time of Disposition: 13:28
[2024-12-27] MEDS: HYDROcodone/acetaminophen (*CRX) 5-325 MG TABLET 1 TAB PO (13:44)
--- OUTSIDE RECORDS SUMMARY | 2024-12-27 16:34 | XMS_ITS | Clinical Summary ---
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 Gender Identity Not on file Sexual Orientation Not on file Plan of Treatment Health Maintenance Due Date Last Done Comments Hepatitis C Virus (HCV) Screening 1955 TdaP Immunization 1955 Cologuard 2001 Colonoscopy 2001 Colorectal Cancer Screening 2001 Immunochemical Fecal Occult Blood 2001 Pneumococcal Immunization (5 0+ years) (1 of 1 - PCV) 2006 Zoster Immunization (1 of 2) 2006 Influenza Immunization (#1) 2024 SARS-COV-2 Immunization ( season) 2024 Respiratory Syncytial Virus (RSV) Immunization (Adult) (1 - 1-dose 75+ series) 10/29/2031 Hepatitis B Immunization Aged Out No longer eligible based on patient's age to complete this topic Human Papillomavirus (HPV) Immunization Aged Out No longer eligible b ased on patient's age to complete this topic Meningococcal Immunization (ACWY) Aged Out No longer eligible based on patient's age to complete this topic Rotavirus Immunization Aged Out No lo nger eligible based on patient's age to complete this topic
== END 2024-12-27 14:15 | disposition home or self-care (01) ==
LOC: ANHED 13:31
PROVIDERS: Emergency Provider Physician Assistant; PCP Emergency Medicine
DX: S92.512A Displaced fracture of proximal phalanx of left lesser toe(s), initial encounter for closed fracture (principal); W01.0XXA Fall on same level from slipping, tripping and stumbling without subsequent striking against object, initial encounter
CPT/HCPCS: 73630; 99284; A9270